=== PATIENT | female | born 1985 | race Caucasian/White ===

== ENCOUNTER 2020-11-08 03:42 | Emergency (ER) | payer BC, OTHER, SELFPAY ==
[2020-11-08 03:43] VITALS: BP 141/87; PULSE 93; RESP 14; TEMP 35.9; O2SAT 100
--- NOTE | 2020-11-08 04:10 | ED.GENADULT ---
HPI - General Adult General Chief complaint: Upper Respiratory Infection Stated complaint: my throat is like closing up Time Seen by Provider: 11/08/20 04:05 History of Present Illness HPI narrative: Patient is a 35-year-old female who presents the emergency department with chief complaint of sore throat. Patient reports that she had problems with strep before in the past and woke up and noticed that he felt as though her throat was very tight. The patient states her throat was scratchy earlier today reports that did feel similar to when she had strep in the past. Patient denies fever denies nausea vomiting or diarrhea. Related Data Home Medications Medication Instructions Recorded Confirmed metformin mg PO 11/08/20 Allergies Allergy/AdvReac Type Severity Reaction Status Date / Time Penicillins Allergy Intermediate RASH,HIVES, Verified 11/08/20 03:45 SOB Sulfa (Sulfonamide Allergy Intermediate RASH,HIVES Verified 11/08/20 03:45 Antibiotics) Review of Systems Review of Systems: Narrative: A 10 system review of systems was completed on the patient and is negative except for what is stated in the HPI. Nursing and ancillary documentation was reviewed. [facility] Social History Social History Gender identity (if verbalized by the patient): Female Exam Narrative: Exam Narrative: GENERAL: Well-appearing, well-nourished, and in no acute distress. HEAD: Normocephalic, atraumatic. EYES: PERRLA and EOMI. ENT: Nares clear, no rhinorrhea or epistaxis. Mucous membranes moist. NECK: Supple. CHEST: Clear to auscultation. No respiratory distress. HEART: Regular rate and rhythm. No murmur heard. Normal peripheral pulses. ABDOMEN: Soft, nontender, nondistended, normal active bowel sounds. EXTREMITIES: Normal range of motion. No edema. SKIN: Warm, dry, no rash. NEURO: No focal deficits. Alert and oriented x3. PSYCH: Normal mood and affect. Course Course Emergency Course: The patient's rapid strep was positive Vital Signs Vital signs: Vital Signs Temperature 35.9 C L 11/08/20 03:43 Pulse Rate 93 11/08/20 03:43 Respiratory Rate 14 11/08/20 03:43 Blood Pressure 141/87 H 11/08/20 03:43 Pulse Oximetry 100 11/08/20 03:43 Temperature 35.9 C L 11/08/20 03:43 Pulse Rate 93 11/08/20 03:43 Respiratory Rate 14 11/08/20 03:43 Blood Pressure 141/87 H 11/08/20 03:43 Pulse Oximetry 100 11/08/20 03:43 Medical Decision Making Vital Signs Vital Signs: Vital Signs Temperature 35.9 C L 11/08/20 03:43 Pulse Rate 93 11/08/20 03:43 Respiratory Rate 14 11/08/20 03:43 Blood Pressure 141/87 H 11/08/20 03:43 Pulse Oximetry 100 11/08/20 03:43 Temperature 35.9 C L 11/08/20 03:43 Pulse Rate 93 11/08/20 03:43 Respiratory Rate 14 11/08/20 03:43 Blood Pressure 141/87 H 11/08/20 03:43 Pulse Oximetry 100 11/08/20 03:43 Lab Data Labs: Strep Screen Positive Group A Strep *(Reference Range: Negative)* Discharge Plan Discharge Clinical Impression: Acute streptococcal pharyngitis Patient Disposition: Home, Self-Care Condition: Stable Instructions: Antibiotic Form, Strep Throat (ED) Prescriptions: New methylprednisolone [Medrol (Víctor)] 4 mg tablets,dose pack See Rx Instructions PO .COMPLEX Qty: 21 RF: 0 azithromycin [Zithromax Z-Víctor] 250 mg tablet See Rx Instructions .ROUTE .COMPLEX Qty: 6 RF: 0 No Action metformin 1,000 mg Tablet Extended Release 24hr PO RF: 0 Follow-up/Referrals: Nikita Leon MD [Physician] - 1 Week PHYSICIAN,DIRECTOR OF HEALTH[employer]ARE SYSTEMS [Primary Care Provider] - Time of Disposition: 04:13
[2020-11-08 04:36] VITALS: BP 140/80; PULSE 80; RESP 16; TEMP 36.1; O2SAT 100
== END 2020-11-08 04:37 | disposition home or self-care (01) ==
PROVIDERS: Emergency Provider Emergency Medicine
DX: J02.0 Streptococcal pharyngitis (principal)
CPT/HCPCS: 87880; 99283

== ENCOUNTER 2021-07-21 01:13 | Emergency (ER) | payer BC, OTHER, SELFPAY ==
[2021-07-21] VITALS (9 sets, daily range): BP systolic 112–135; BP diastolic 75–94; PULSE 85–113; RESP 16–29; TEMP 36.7–37.3; O2SAT 92–98
--- NOTE | ~2021-07-21 | CT_ITS ---
EXAMINATION: CT brain wo con DATE: 07/21/2021 05:41 INDICATION: Syncope TECHNIQUE: Computed tomography (CT) of the head was performed without intravenous contrast. The mA wa s adjusted according to patient size. Iterative reconstruction technique was employed. Exam dose: 60 5.33 mGy-cm total exam DLP. COMPARISON: None FINDINGS: No intracranial mass lesion or hemorrhage or cerebrovascular accident. No midline shift or mass effect effect. Normal ventricular size. Normal mendoza-white matter differentiation. No subdural or epidural hematoma. The orbital contents are unremarkable. There is minimal mucoperiosteal thickening of the sphenoid and maxillary sinuses and ethmoid air cell s. The mastoid air cells are normally developed and aerated. No fracture or bone destruction of the cranial vault. IMPRESSION: No intracranial abnormality Reviewed, dictated and finalized at [facility]. Reviewed, dictated and finalized at [facility]. NAILER IMPRESSION: No intracranial abnormality
--- NOTE | ~2021-07-21 | CT_ITS ---
EXAMINATION: CTA chest PE protocol DATE: 07/21/2021 07:12 INDICATION: Syncope. Elevated d-dimer. Covid-positive on 07/14/2021 TECHNIQUE: Computed tomography angiography (CTA) of the chest was performed with 100 mL Omnipaque-350 intravenous contrast timed to evaluate the pulmonary arteries. Coronal maximum intensity projection 3D-reconstructions were created by the technologist. Automated exposure control and iterative reconst ruction technique were employed. Exam dose: 901.06 mGy-cm total exam DLP. COMPARISON: 05/05/2019 2 view chest FINDINGS: There is diagnostic contrast enhancement of the pulmonary arteries and no evidence of pulmo nary embolism. No thoracic aortic aneurysm or dissection. Normal heart size. No pericardial or pleural effusion. No hilar or mediastinal mass lesion or lymphadenopathy. There are extensive scattered patchy bilateral pulmonary infiltrates consistent with Covid pneumonia. Surgical clips are noted at the right lung base. Normal morphology of the adrenal glands. Included upper abdominal structures are unremarkable. No suspicious osteolytic or osteoblastic lesions. IMPRESSION: Scattered bilateral patchy pulmonary infiltrates consistent with Covid pneumonia No evidence of pulmonary embolism Reviewed, dictated and finalized at [facility]. Reviewed, dictated and finalized at [facility]. CLEANER IMPRESSION: Scattered bilateral patchy pulmonary infiltrates consistent with C ovid pneumonia No evidence of pulmonary embolism
--- NOTE | 2021-07-21 04:34 | ECG_ITS ---
Measurements Intervals [place] Rate: 98 P: 22 PA: 149 QRS: 13 QRSD: 92 T: 42 QT: 349 QTc: 447 Interpretive Statements SINUS RHYTHM DELAYED PRECORDIAL R/S TRANSITION BORDERLINE T WAVE ABNORMALITY- HIGH LATERAL LEADS BASELINE ARTIFACT- V2-V6 BORDERLINE ECG Electronically Signed On 07-21-2021 6:27:08 [employer] SALES REPRESENTATIVE by Riki Ayala D.O.
--- NOTE | 2021-07-21 04:38 | ED.SYNCOPE ---
HPI - Syncope General Chief Complaint: Syncope <Chato Soni MD - Last Filed: 07/21/21 06:33> Stated Complaint: COVID +, lethargy, syncope, back pain <Chato Soni MD - Last Filed: 07/21/21 06:33> Time Seen by Provider: 07/21/21 04:36 <Chato Soni MD - Last Filed: 07/21/21 06:33> Source: patient <Chato Soni MD - Last Filed: 07/21/21 06:33> Mode of arrival: ambulatory <Chato Soni MD - Last Filed: 07/21/21 06:33> Limitations: no limitations <Chato Soni MD - Last Filed: 07/21/21 06:33> History of Present Illness HPI narrative: Patient is a 36-year-old female complaining of a syncopal episode at home early this morning. Patient also complaining of mid upper back pain. Patient denies any head injury. Patient denies any speech or visual disturbance, focal weakness or numbness, unsteady gait, headache, dizziness, chest pain, shortness of breath, abdominal pain, nausea, vomiting, diarrhea, fever or chills. <Chato Soni MD - Last Filed: 07/21/21 06:33> Related Data Home Medications: Home Medications Medication Instructions Recorded Confirmed No Home Medications 07/21/21 07/21/21 <Chato Soni MD - Last Filed: 07/21/21 06:33> Allergies/Adverse Reactions: Allergies Allergy/AdvReac Type Severity Reaction Status Date / Time Penicillins Allergy Intermediate RASH,HIVES, Verified 07/21/21 01:23 SOB Sulfa (Sulfonamide Allergy Intermediate RASH,HIVES Verified 07/21/21 01:23 Antibiotics) <Chato Soni MD - Last Filed: 07/21/21 06:33> Review of Systems Review of Systems: All systems reviewed & are unremarkable except as noted in HPI and below <Chato Soni MD - Last Filed: 07/21/21 06:33> Constitutional: Constitutional: Denies body ache(s), Denies chills, Denies excessive sweating, Denies fatigue, Denies fever(s), Denies headache(s), Denies lethargy, Denies malaise, Denies weakness and Denies weight loss <Chato Soni MD - Last Filed: 07/21/21 06:33> Eyes: Eyes: Denies blurry vision, Denies change in vision and Denies loss of vision <Chato Soni MD - Last Filed: 07/21/21 06:33> ENT: Denies dizziness, Denies ear discharge, Denies headache(s), Denies lip swelling, Denies epistaxis, Denies nasal congestion, Denies neck pain, Denies throat swelling and Denies tongue swelling <Chato Soni MD - Last Filed: 07/21/21 06:33> Cardiovascular: Cardiovascular: Denies chest pain, Denies chest pain at rest, Denies chest pain with activity, Denies diaphoresis, Denies rapid heart rate, Denies edema, Denies irregular heart rhythm, Denies lightheadedness, Denies palpitations, Denies dyspnea and Denies dyspnea on exertion <Chato Soni MD - Last Filed: 07/21/21 06:33> Respiratory: Respiratory: Denies chest congestion, Denies cough, Denies hemoptysis, Denies dyspnea and Denies dyspnea on exertion <Chato Soni MD - Last Filed: 07/21/21 06:33> Gastrointestinal: Gastrointestinal: Denies abdominal pain, Denies melena, Denies hematochezia, Denies diarrhea, Denies nausea, Denies vomiting and Denies hematemesis <Chato Soni MD - Last Filed: 07/21/21 06:33> Musculoskeletal: Musculoskeletal: Denies abnormal gait, Denies deformity, Denies joint swelling, Denies limited range of motion, Denies neck pain and Denies numbness <Chato Soni MD - Last Filed: 07/21/21 06:33> Neurologic: Denies Abnormal speech present, Denies abnormal gait, Denies confusion, Denies dizziness, Denies headache(s), Denies focal weakness, Denies loss of vision, Denies numbness, Denies Other visual disturbances, Denies Sensory deficit (Neuro) and Denies weakness <Chato Soni MD - Last Filed: 07/21/21 06:33> Psychiatric: Psychiatric: Denies confusion, Denies depression, Denies auditory hallucinations, Denies homicidal ideation and Denies suicidal ideation <Chato Soni MD - Last Filed: 07/21/21 06:3
[2021-07-21 04:46] LABS: Basophils Percent Auto 0.3 % (0.2-1.2); Hematocrit 45.7 % (37.0-47.0); Hemoglobin 14.8 g/dL (12.0-15.0); Immature Granulocyte Absolute 0.02 K/mm3 (0.00-0.031); Immature Granulocyte Percent A 0.6 % (0-0.5); Lymphocytes Absolute Auto 0.92 K/mm3 (0.9-3.2); Lymphocytes Percent Auto 27.7 % (18.3-44.2); Mean Corpuscular HGB Conc 32.4 g/dl (32-36); Mean Corpuscular Hemoglobin 26.3 pg (26-34); Mean Corpuscular Volume 81.2 fl (80-100); Mean Platelet Volume 10.3 fl (7.4-10.4); Monocytes Absolute Auto 0.1 K/mm3 (0.1-0.6); Monocytes Percent Auto 4.2 % (2.6-8.5); Neutrophils Absolute Auto 2.2 K/mm3 (1.3-6.7); Neutrophils Percent Auto 67.2 % (45.5-73.1); Platelet Count Result 143 k/mm3 (150-375); Red Blood Count 5.63 M/mm3 (4.2-5.4); Red Cell Distribution Width 13.8 % (11.5-14.5); White Blood Count 3.3 K/mm3 (4.5-10.0)
[2021-07-21 04:58] LABS: D Dimer 0.48 ug/mL (<0.48)
[2021-07-21 05:06] LABS: Alanine Aminotransferase 77 U/L (4-35); Albumin Level 4.1 g/dL (3.5-5.1); Alkaline Phosphatase 77 U/L (38-126); Anion Gap 13 mmol/L (8-16); Aspartate Amino Transferase 78 U/L (14-36); Bilirubin,Total 0.3 mg/dL (0.2-1.3); Blood Urea Nitrogen 12 mg/dL (7-17); Calcium 9.2 mg/dL (8.4-10.2); Carbon Dioxide 20 mmol/L (22-30); Chloride 104 mmol/L (98-107); Estimated CRCL calculation 113 ml/min; Estimated Glomerular Filt Rate > 60; Glucose 133 mg/dL (65-110); Sodium 137 mmol/L (137-145)
[2021-07-21 05:13] LABS: Troponin I < 0.012 ng/mL (0.000-0.034)
[2021-07-21] MEDS: SODIUM CHLORIDE 0.9% IV 1,000 ML 999 ML IV CONT ×2 (05:49→06:44)
[2021-07-21] MEDS: ONDANSETRON INJ 4 MG/2 ML VIAL IV PUSH (05:50)
[2021-07-21 07:20] LABS: Add Urine Microscopic? YES; Appearance Urine Cloudy (Clear); Bacteria Urine Trace /hpf; Bilirubin Urine Negative (Negative); Color Urine Yellow (Yellow); Glucose Urine UA Negative (Negative); Ketones Urine Trace mg/dL (Negative); Leukocyte Esterase Ur Trace LEU/UL (Negative); Mucus Urine Rare /lpf; Nitrate Urine Negative (Negative); Protein Urine 2+ mg/dL (Negative); RBC Urine 21-50 /hpf (0-2); Specific Grav Ur 1.024 (1.001-1.035); Squamous Epithelial Cell Urine Many /hpf (Few); Urobilinogen Urine Negative mg/dL (<2.0); WBC Urine 16-20 /hpf
[2021-07-21 07:30] LABS: Blood Urine Negative (Negative)
== END 2021-07-21 08:09 | disposition home or self-care (01) ==
PROVIDERS: Emergency Provider Emergency Medicine
DX: U07.1 COVID-19 (principal); J12.82 Pneumonia due to coronavirus disease 2019
CPT/HCPCS: 36415; 70450; 71275; 80053; 81001; 81025; 84484; 85025; 85380; 87077; 87086; 87088; 87186; 93005; 96361; 96374; 99284; J2405; J7030; Q9967

== ENCOUNTER 2023-10-11 13:56 | Outpatient (CLI) | payer OTHER, SELFPAY ==
--- NOTE | ~2023-10-11 | MM_ITS ---
EXAMINATION: MM screening [facility] w ophelia HISTORY: Screening mammogram TECHNIQUE: Craniocaudal and mediolateral oblique 3-D tomosynthesis images were obtained and synthetic 2-D images were generated. CAD analysis was submitted and interpreted. COMPARISON: 07/28/2012 [facility] bilateral screening mammogram BREAST PARENCHYMAL COMPOSITION: There are scattered areas of fibroglandular density. FINDINGS: There is no evidence of suspicious mass, calcification, or architectural distortion to sugg est malignancy in either breast. There has been no suspicious interval change. IMPRESSION: 1. No mammographic evidence of malignancy. 2. Recommend routine screening mammography in one year. BI-RADS Category 1: Negative Reviewed, dictated and finalized at [facility].
== END 2023-10-11 13:57 ==
LOC: MICIMG 13:58
PROVIDERS: PCP Nurse Practitioner; Visit Provider Obstetrics & Gynecology
DX: Z12.31 Encounter for screening mammogram for malignant neoplasm of breast (principal)
CPT/HCPCS: 77063; 77067

== ENCOUNTER 2025-03-27 08:20 | Outpatient (CLI) | payer OTHER, SELFPAY ==
--- NOTE | ~2025-03-27 | MM_ITS ---
EXAMINATION: MM screening [facility] w [facility]helia HISTORY: Screening TECHNIQUE: Craniocaudal and mediolateral oblique 3-D tomosynthesis images were obtained and synthetic 2-D images were generated. CAD analysis was submitted and interpreted. COMPARISON: Comparison to multiple prior studies sequentially, with oldest reviewed study dated , 07/28/2012 BREAST PARENCHYMAL COMPOSITION: There are scattered areas of fibroglandular density. FINDINGS: There is no evidence of suspicious mass, calcification, or architectural distortion to suggest malignancy in either breast. IMPRESSION: 1. No mammographic evidence of malignancy. 2. Recommend routine screening mammography in one year. BI-RADS Category 1: Negative Reviewed, dictated and finalized at [facility].
== END 2025-03-27 08:21 | disposition home or self-care (01) ==
LOC: MICIMG 08:21
PROVIDERS: PCP Student in an Organized Health Care Education/Training Program; Visit Provider Student in an Organized Health Care Education/Training Program
DX: Z12.31 Encounter for screening mammogram for malignant neoplasm of breast (principal)
CPT/HCPCS: 77063; 77067